=== PATIENT | female | born 1985 | race African-American/Black ===

== ENCOUNTER 2017-10-22 10:38 | Inpatient (IN) | payer MEDICARE, OTHER ==
[~2017-10-22] VITALS: Ht 162.6 cm; Wt 43.1 kg
[2017-10-22] MEDS ORDERED: CALCIUM PO (10:53)
[2017-10-22] MEDS ORDERED: PRED20TA PO (10:53)
[2017-10-22] MEDS ORDERED: LEVE500T9 PO (10:53)
[2017-10-22] MEDS ORDERED: PHOSLO PO (10:53)
[2017-10-22] MEDS ORDERED: CHOL10005 PO (10:53)
--- NOTE | 2017-10-22 10:59 | NUR ---
pt is in room #1b. dr Rajan evaluated the pt. PICC line insertion was requested, nursing supervisor public health nursing Silvino called for PICC line specialist.
[2017-10-22] MEDS ORDERED: ONDANSETRON 4 MG/2 ML VIAL IV ONE (11:00)
[2017-10-22] MEDS ORDERED: HYDROMORPHONE 1 MG/1 ML DISP.SYRIN IV ONE (11:00)
[2017-10-22] MEDS ORDERED: diphenhydrAMINE 50 MG/1 ML VIAL IV ONE (11:00)
[2017-10-22] MEDS ORDERED: ONDANSETRON 4 MG/2 ML VIAL ONE (11:31)
[2017-10-22] MEDS ORDERED: HYDROMORPHONE 2 MG/1 ML DISP.SYRIN ONE ×2 (11:31→14:27)
[2017-10-22] MEDS ORDERED: diphenhydrAMINE 50 MG/1 ML VIAL ONE ×2 (11:32→14:27)
[2017-10-22] MEDS: SODIUM POLYSTYRENE SULFONATE 15 G/60 ML LIQUID UDC PO ONE ×2 (13:30→13:35)
[2017-10-22] MEDS ORDERED: SODIUM POLYSTYRENE SULFONATE 15 G/60 ML LIQUID UDC ONE (13:43)
[2017-10-22] MEDS ORDERED: ACETAMINOPHEN 325 MG TABLET PO PRN (13:45)
[2017-10-22] MEDS ORDERED: HYDROCODONE/APAP 5-325MG TABLET PO PRN (13:45)
[2017-10-22] MEDS ORDERED: Z GUARD REMEDY PASTE 57 GM TUBE TOP PRN (13:45)
[2017-10-22] MEDS ORDERED: diphenhydrAMINE 25 MG CAP PO PRN (13:45)
[2017-10-22] MEDS ORDERED: MAGNESIUM HYDROXIDE 30 ML LIQUID UDC PO PRN (13:45)
[2017-10-22] MEDS ORDERED: ONDANSETRON 4 MG/2 ML VIAL IV PRN (13:45)
--- NOTE | 2017-10-22 13:50 | NUR ---
PT REFUSED KAYEXALATE 30MG PO. DR HDEZ NOTIFIED.
--- NOTE | 2017-10-22 14:43 | NUR ---
PT WAS TRANSFERED TO ROOM #205. REPORT WAS GIVEN TO DRILLING INSPECTOR.
[2017-10-22] MEDS ORDERED: HYDROMORPHONE 1 MG/1 ML DISP.SYRIN IV PRN (14:45)
[2017-10-22] MEDS ORDERED: diphenhydrAMINE 50 MG/1 ML VIAL IV PRN (14:45)
--- NOTE | 2017-10-22 15:00 | NUR ---
ADMITTED FROM HOME A 32 YO FEMALE WITH ADM DX OF CHEST PAIN AWAKE ALERT AND ORIENTED X3 NO SS OF PAIN OR DISTRESS. SR ON MONITOR
[2017-10-22 15:24] VITALS: BP 118/72
[2017-10-22 15:33] LABS: *URINE HCG, QUAL NEGATIVE (NEGATIVE)
--- NOTE | 2017-10-22 16:15 | NUR ---
PATIENT ASKED FOR IV DILAUDID AND IV BENADRYL BEFORE HD, LAUNDRY TECHNICIAN ISAAK BYRD NOTIFIED BUT NO IV DILAUDID AND BENADRYL ORDERED AND SAID CONTINUE PO BENADRYL AND DILAUDID. TRIED TO RELAY MESSAGE TO PATIENT BUT INSTEAD PATIENT BECAME UPSET AND WANTS TO LEAVE AMA. DR BRYANT NOTIFIED AND ALSO NURSING NATIONAL ACCOUNT DIRECTOR
--- NOTE | 2017-10-22 16:15 | NUR ---
IV BENADRYL 25 MG WAS ABOUT TO ADMINISTER TO PATIENT BUT ORDER WAS DISCONTINUED
--- NOTE | 2017-10-22 17:15 | NUR ---
HEMODIALYSIS TECH AT BEDSIDE, PATIENT LEFT AMA AND COMPLETELY REFUSED HEMODIALYSIS
[2017-10-22] MEDS ORDERED: LEVETIRACETAM 500 MG TABLET PO SCH (21:00)
[2017-10-23] MEDS ORDERED: predniSONE 20 MG TABLET PO SCH (09:00)
[2017-10-23] MEDS ORDERED: predniSONE 10 MG TABLET PO SCH (09:00)
== END 2017-10-22 17:25 | disposition left against medical advice (07) | DRG 545 ==
LOC: ER 10:38 → TELE-TD 14:38
PROVIDERS: ADMIT Registered Nurse; ATTEND Registered Nurse
DX: M32.9 Systemic lupus erythematosus, unspecified (principal); N18.6 End stage renal disease; F11.20 Opioid dependence, uncomplicated; Z99.2 Dependence on renal dialysis; Z91.15 Patient's noncompliance with renal dialysis; E87.5 Hyperkalemia; Z79.52 Long term (current) use of systemic steroids; Z79.899 Other long term (current) drug therapy; Z76.5 Malingerer [conscious simulation]; Z91.19 Patient's noncompliance with other medical treatment and regimen; M32.14 Glomerular disease in systemic lupus erythematosus
CPT/HCPCS: 71045; 84703; 93005; A4663; J1170; J1200; J2405

== ENCOUNTER 2019-01-10 15:06 | Emergency (ER) | payer MEDICARE, OTHER ==
[~2019-01-10] VITALS: Ht 162.6 cm; Wt 45.4 kg
[~2019-01-10 15:06] MED LIST: CALCIUM PO; CHOL10005 PO; LEVE500T9 PO; PHOSLO PO; PRED20TA PO
[2019-01-10] MEDS ORDERED: HYDROMORPHONE 1 MG/1 ML DISP.SYRIN IV ONE (15:45)
[2019-01-10] MEDS ORDERED: ONDANSETRON 4 MG/2 ML VIAL IV ONE (15:45)
[2019-01-10] MEDS ORDERED: HYDR2TAB4 PO (15:46)
[2019-01-10] MEDS ORDERED: DIPH25CA83 PO (15:46)
--- NOTE | 2019-01-10 16:04 | NUR ---
PT REFUSED TREATMENT AND DECIDED TO LEAVE HOSPITAL AMA. DR ALCANTARA EXPLAINED ALL RISKS OF LEAVING HOSPITAL AMA TO THE PT. PT WERBALIZED FULL UNDERSTANDING OF THE RISKS, SIGNED AMA FORM AND LEFT HOSPITAL ER. NO S/S OF ACUTE DISTRESS. GAIT IS STABLE. PT DENIES PAIN. NO SOB. NO N/V.
[2019-01-10 16:12] VITALS: BP 148/91
== END 2019-01-10 16:12 | disposition left against medical advice (07) ==
LOC: ER 15:06
DX: R07.9 Chest pain, unspecified (principal); N17.9 Acute kidney failure, unspecified; Z99.2 Dependence on renal dialysis; Z88.5 Allergy status to narcotic agent; Z79.899 Other long term (current) drug therapy
CPT/HCPCS: 71045; 93005; A4663